=== PATIENT | male | born 1960 | race Caucasian/White ===

== ENCOUNTER → 2021-01-16 | Outpatient (CLI) | payer BC ==
[2021-01-16] MEDS: REGADENOSON 0.4 MG/5 ML DISP.SYRIN. IV ONE (08:30)
--- NOTE | 2021-01-16 13:23 | RAD ---
INDICATION: Reason: CAROTID STENOSIS, DIABETIC, HX OF SMOKING, CLAUDICATION, CVA / Spl. Instructions: / History: COMPARISON: February 2020 TECHNIQUE: Color, grayscale and doppler ultrasound images obtained of the carotid system bilaterally. Percent stenosis is estimated using criteria that correlates with NASCET methodology. FINDINGS: Peak systolic velocities are as follows in cm/s: Right Carotid System: CCA: 72 ICA: 337 ICA/CCA Ratio 4.7 Left Carotid System: CCA: 83 ICA: 120 ICA/CCA Ratio 1.5 Vertebral arteries are antegrade bilaterally. Multifocal plaque is seen right greater than left. IMPRESSION: * Elevated velocity and ratio within the right internal carotid artery correlating with a greater th an 70 percent stenosis. Suspect that the velocity is likely exaggerated secondary to technical factor s but narrowing of greater than 50 percent is suspected. * Multifocal plaque bilaterally. Electronically signed by: Imer Bernstein MD (01/16/2021 1:21 PM) [id number]
[2021-01-16 13:46] LABS: ALBUMIN 4.4 g/dL (3.4-5.0); ALBUMIN/GLOBULIN RATIO 1.3 (1.0-1.7); CALCIUM 9.1 mg/dL (8.5-10.1); CREATININE 0.8 mg/dL (0.7-1.3); POTASSIUM 4.1 mmol/L (3.5-5.1); TOTAL BILIRUBIN 0.9 mg/dL (0.2-1.0); TOTAL PROTEIN 7.7 g/dL (6.4-8.2)
--- NOTE | 2021-01-16 15:16 | RAD ---
US DPLX ARTR EXTREM LOWER BILAT, US DPLX ARTR EXTREM LOWER BILAT Indication: Reason: PAD, CLAUDICATION, HX OF SMOKING, CVA / Spl. Instructions: / History: Comparison: None. Procedure: Arterial pressures are measured in the arms and ankles. Real-time grayscale, color flow D oppler, and Doppler spectral waveform analysis of the arterial system of the lower extremity is perfo rmed. Findings: Right arm: 128 mm Hg. Right ankle: 110 mm Hg. Right leg OSWALDO: 0.8. Left arm: 130 mm Hg. Left ankle: 114 mm Hg. Left leg OSWALDO: 0.9. Findings: Right lower extremity: Moderate atheromatous plaque. Triphasic or biphasic waveforms within the right common femoral, deep femoral, superficial femoral, and popliteal arteries. Monophasic waveform withi n the distal posterior tibial, peroneal, anterior tibial and dorsalis pedis arteries. Mildly elevated velocity within the right common femoral artery measures 179 cm/s. Left lower extremity: Moderate atheromatous plaque. Monophasic waveforms within the left anterior tib ial and dorsalis pedis arteries. Triphasic or biphasic waveforms within the remainder left lower extr emity. Mildly elevated velocity within the left deep femoral artery measures 178 cm/s. IMPRESSION: 1. Moderate bilateral atheromatous plaque. 2. Mildly elevated velocity within the RIGHT common femoral and LEFT deep femoral arteries, may sergio lynn 30-49 percent stenosis. 3. Monophasic waveforms within the distal bilateral lower extremities, may relate to proximal stenos is. 4. Mild bilateral peripheral vascular disease according to ankle brachial indices. Electronically signed by: Mark Riley DO (01/16/2021 3:13 PM) [facility]
--- NOTE | 2021-01-16 18:33 | RAD ---
MR#: [id number] Date of Study: 01/16/2021 Ordering Physician: CHRIS GRAJEDA, Referring Physician: DAVIDA SIERRA Tech: RT Teresa (R) (N) APPROVED REPORT Test Type: Pharmacological Stress Nurse/Tech: Wilbert/Lindsay Test Indications: Dyspnea Cardiac History: No known cardiac Medications: See EHR Medical History: See Electronic Medical Record Resting Heart Rate: 65 bpm Resting Blood Pressure: 134/60mmHg Pretest Chest Pain: None Pharm. Details Pharmacologic stress testing was performed using 0.4mg per 5ml of regadenoson given intravenously ove r 7-10 seconds. POST EXERCISE Reason for Termination: Infusion complete Blood Pressure response to exercise: Normal blood pressure response during stress. Heart Rate response to exercise: Increased Chest Pain: No. Arrhythmia: No. ST Change: No. INTERPRETATION Stress EKG Conclusion: The resting EKG shows a sinus rhythm. The stress EKG shows no significant changes from baseline. No EKG evidence of stress-induced ischemia. Imaging Protocol IMAGE PROTOCOL: Rest Tc-99m/stress Tc-99m 1 day Rest: Stress: Viability: Radiopharm.Tc99m [id number] Sestamibi Ipos27zHc 33mCi Duration 15min. 15min. Img Date 01/16/2021 01/16/2021 Inj-Img Waoo77std. 60min. Rest Admin Site:IV - Right AntecubitalAdministrator: RT Teresa (R)(N) Stress Admin Site: IV - Right AntecubitalAdministrator: RT Teresa (R)(N) STRESS DATA End Diast. Vol.97.0mlAv. Heart Rate55.0bpm End Syst. Vol.21.0mlCO Index BSA0.0L/min Myocardial Qrrf866.0gEject. Apuikcrt41.0% Stress Rates Pk. Fill Rate2.38EDV/secLVtime Pk. Fill 217.91msec Pk. Empty Rate3.98ESV/secLVtime Pk. Khuyk279.83msec 08/18 Pk. Fill1.38EDV/sec Stress Scores Regional WT0.00Summed WT0.00 Regional WM0.00Summed WM0.00 LV Perfusion The stress scans show no significant defects. The rest scans show no significant defects. Nuclear imaging shows no reversible ischemia or infarct. Wall Motion Left ventricular systolic function is normal with no regional wall motion abnormalities and an ejecti on fraction of greater than 70%. LV Perf. Quant 17 Seg. SSS0.00 17 Seg. SRS3.00 17 Seg. SDS0.00 Stress Defect Extent (% LAD)0.00Rest Defect Extent (% LAD)11.30Rev. Defect Extent (% LAD)0.00 Stress Defect Extent (% LCX) 0.00Rest Defect Extent (% LCX)0.00Rev. Defect Extent (% LCX)0.00 Stress Defect Extent (% RCA)0.00Rest Defect Extent (% RCA)0.00Rev. Defect Extent (% RCA)0.00 Stress Defect Extent (% RADHA)0.00Rest Defect Extent (% RADHA)3.90Rev. Defect Extent (% RADHA)0.00 IMPRESSION RV Function: Normal, Abnormal, Mildly Reduced, Moderately Reduced, Severely Reduced Conclusion 1. No EKG evidence of stress-induced ischemia. 2. Nuclear imaging shows no reversible ischemia or infarct. 3. Normal left ventricular systolic function with an ejection fraction of greater than 70%. 4. Low risk Lexiscan nuclear stress test. Signed by : Alexsander Rangel MD Electronically Approved : 01/16/2021 18:33:06
== END ==
LOC: NM 07:58
PROVIDERS: ATTEND Internal Medicine Cardiovascular Disease
DX: I65.23 Occlusion and stenosis of bilateral carotid arteries (principal); Z87.891 Personal history of nicotine dependence
CPT/HCPCS: 36415; 78452; 80053; 80061; 93017; 93880; 93922; 93925; A9500; J2785